=== PATIENT | male | born 1960 | race Caucasian/White ===

== ENCOUNTER 2022-03-14 14:11 | Emergency (ER) | payer MEDICARE, OTHER ==
[~2022-03-14] VITALS: Ht 182 cm; Wt 67.0 kg
--- NOTE | 2022-03-14 15:21 | ED Lower Extremity ---
General Chief Complaint: Lower Extremity Stated Complaint: LEFT LEG SWELLING Source: patient Exam Limitations: no limitations History of Present Illness Date Seen by Provider: Mar 14, 2022 Time Seen by Provider: 15:03 Initial Comments Here with report of left leg swelling and color changes after having surgery for sciatica a few weeks ago. Notes when his leg is down that it turns quite purple and swells but gets better when he puts his leg up. He did not have this problem prior to the surgery. Was seen at [address] today and sent here due to concerns for vascular compromise due to the color changes. On arrival, doing better as his legs have been up. He is currently on aspirin 81 mg daily but not on other blood thinner. Onset: last week Severity: moderate Pain/Injury Location: left leg Method of Injury: unknown Modifying Factors: Improves With Other (Dependent position) Allergies and Home Medications Allergies Coded Allergies: No Known Drug Allergies (Unverified , 03/14/22) Patient Home Medication List Home Medication List Reviewed: Yes Review of Systems Constitutional: see HPI; No chills, No fever Respiratory: no symptoms reported Cardiovascular: edema; No palpitations Musculoskeletal: muscle pain; No muscle weakness Skin: change in color; No lesions Past Sdnukvz-Oxfuic-Koroug Hx Patient Social History Tobacco Use?: No Smoking Status: Former Smoker Substance use?: No Alcohol Use?: No Past Medical History Surgeries: Yes Orthopedic Cardiac: Yes Hypertension Family Medical History Reviewed and Corrections made No Pertinent Family Hx Physical Exam Vital Signs Vital Signs - First Documented 03/14/22 14:57 Temp 36.4 Pulse 60 Resp 18 B/P (MAP) 128/99 (109) Pulse Ox 97 Capillary Refill : Height, Weight, BMI Height: '" Weight: lbs. oz. kg; BMI Method: General Appearance: WD/WN, no apparent distress Cardiovascular: regular rate, rhythm, no murmur Respiratory: lungs clear, normal breath sounds Legs: left leg other (Mild swelling of the left lower extremity versus right. Currently color is similar between both feet and lower extremities. Pulses dopplerable dorsalis pedis bilateral and equal.) Neurologic/Psychiatric: alert, oriented x 3 Skin: normal color, warm/dry Progress/Results/Core Measures Results/Orders Lab Results Laboratory Tests Test 03/14/22 15:37 Range/Units White Blood Count 5.5 4.3-11.0 10^3/uL Red Blood Count 3.83 L 4.30-5.52 10^6/uL Hemoglobin 13.6 13.3-17.7 g/dL Hematocrit 39 L 40-54 % Mean Corpuscular Volume 102 H 80-99 fL Mean Corpuscular Hemoglobin 36 H 25-34 pg Mean Corpuscular Hemoglobin Concent 35 32-36 g/dL Red Cell Distribution Width 14.0 10.0-14.5 % Platelet Count 276 130-400 10^3/uL Mean Platelet Volume 10.1 9.0-12.2 fL Immature Granulocyte % (Auto) 0 % Neutrophils (%) (Auto) 54 42-75 % Lymphocytes (%) (Auto) 38 12-44 % Monocytes (%) (Auto) 7 0-12 % Eosinophils (%) (Auto) 1 0-10 % Basophils (%) (Auto) 1 0-10 % Neutrophils # (Auto) 3.0 1.8-7.8 10^3/uL Lymphocytes # (Auto) 2.1 1.0-4.0 10^3/uL Monocytes # (Auto) 0.4 0.0-1.0 10^3/uL Eosinophils # (Auto) 0.1 0.0-0.3 10^3/uL Basophils # (Auto) 0.0 0.0-0.1 10^3/uL Immature Granulocyte # (Auto) 0.0 0.0-0.1 10^3/uL Sodium Level 139 135-145 MMOL/L Potassium Level 3.9 3.6-5.0 MMOL/L Chloride Level 103 98-107 MMOL/L Carbon Dioxide Level 27 21-32 MMOL/L Anion Gap 9 5-14 MMOL/L Blood Urea Nitrogen 11 7-18 MG/DL Creatinine 0.75 0.60-1.30 MG/DL Estimat Glomerular Filtration Rate 101 BUN/Creatinine Ratio 15 Glucose Level 101 70-105 MG/DL Calcium Level 9.4 8.5-10.1 MG/DL Corrected Calcium 9.0 8.5-10.1 MG/DL Total Bilirubin 0.7 0.1-1.0 MG/DL Aspartate Amino Transf (AST/SGOT) 16 5-34 U/L Alanine Aminotransferase (ALT/SGPT) 16 0-55 U/L Alkaline Phosphatase 48 40-136 U/L Total Protein 7.2 6.4-8.2 GM/DL Albumin 4.5 3.2-4.5 GM/DL My Orders Orders - DANN VARELA MD Us Venous Lower Ext Lt (03/14/22 15:09) Cbc With Automated Diff (03/14/22 15:09) Comprehensive Metabolic Panel (03/14/22 15:09) Vital Signs/I&O 03/14/22 14:57 Temp 36.4 Pulse 60 Resp 18 B/P (MAP) 128/99 (109) Pulse Ox 97 Progress Progress Note : Progress Note Seen and evaluated. We will check labs and ultrasound left lower extremity rule out DVT given his recent surgery and current symptoms. We were able to Doppler pulses bilateral dorsalis pedis and those were equal. His limb is not cold or blue. Monitor patient. 1622: Ultrasound is negative for DVT. I do believe th is is likely postop pain and complication associated with healing but not venous occlusion. This was discussed with the patient. Discharged home with return precautions. Patient verbalized understanding of instructions and agreement with plan. Diagnostic Imaging Diagonstic Imaging: Ultrasound Plain Films/CT/US/NM/MRI: leg Comments [facility], [place] NAME: TITUS SHEEHAN [facility] REC#: [id number] PT STATUS: REG ER : 1960 PHYSICIAN: DANN VARELA MD ADMIT DATE: 03/14/22/ER Draft Date of Exam:03/14/22 US VENOUS LOWER EXT LT Procedure: US left lower extremity venous. Technique: Multiple real-time grayscale images were obtained over the left lower extremity in various projections. Additional duplex Doppler and color Doppler images were also obtained. Date: March 14, 2022. Indication: 61-year-old male, left lower extremity swelling and discoloration. Comparison: None. Findings: The left common femoral vein, left superficial femoral vein, and left popliteal vein are all compressible with normal blood flow and response to augmentation. The visualized portions of the left greater saphenous vein and deep femoral vein are patent. The left posterior tibial and peroneal veins are patent. Impression: 1. Negative for left lower extremity deep venous thrombosis. Dictated on workstation # [id number] Dict: 03/14/22 1543 Trans: 03/14/22 1547 [facility] [id number] Interpreted by: PETE DRUMMOND MD Electronically signed by: Departure Impression Primary Impression: Postoperative pain Additional Impression: Left leg swelling Disposition: 01 HOME, SELF-CARE Condition: Stable Departure-Patient Inst. Decision time for Depature: 16:23 Referrals: NO,LOCAL PHYSICIAN (PCP) Primary Care Physician KEDAR CURTIS (Family) Primary Care Physician Patient Instructions: Postoperative Pain (DC) Add. Discharge Instructions: All discharge instructions reviewed with patient and/or family. Voiced understanding. Continue instructions as given to you by your orthopedist. Follow-up with them as scheduled. You may elevate your leg to reduce swelling. Move your leg as you are able but following instructions from your orthopedist. Return for worse pain, swelling, weakness, breathing problems or other concerns as needed. DANN VARELA MD Mar 14, 2022 15:21
--- NOTE | 2022-03-14 15:47 | Diagnostic Imaging Report ---
Procedure: US left lower extremity venous. Technique: Multiple real-time grayscale images were obtained over the left lower extremity in various projections. Additional duplex Doppler and color Doppler images were also obtained. Date: March 14, 2022. Indication: 61-year-old male, left lower extremity swelling and discoloration. Comparison: None. Findings: The left common femoral vein, left superficial femoral vein, and left popliteal vein are all compressible with normal blood flow and response to augmentation. The visualized portions of the left greater saphenous vein and deep femoral vein are patent. The left posterior tibial and peroneal veins are patent. Impression: 1. Negative for left lower extremity deep venous thrombosis. Dictated by: Dictated on workstation # [id number]
[2022-03-14 15:51] LABS: ALBUMIN 4.5 GM/DL (3.2-4.5)
[2022-03-14 15:52] LABS: POTASSIUM 3.9 MMOL/L (3.6-5.0)
[2022-03-14 15:53] LABS: CALCIUM 9.4 MG/DL (8.5-10.1)
[2022-03-14 15:54] LABS: TOTAL PROTEIN 7.2 GM/DL (6.4-8.2)
[2022-03-14 15:56] LABS: BILIRUBIN,TOTAL 0.7 MG/DL (0.1-1.0)
[2022-03-14 15:58] LABS: CREATININE SERUM 0.75 MG/DL (0.60-1.30)
[2022-03-14 16:00] LABS: BASOPHILS % (AUTO) 1 % (0-10); EOSINOPHILS # (AUTO) 0.1 10^3/uL (0.0-0.3); EOSINOPHILS % (AUTO) 1 % (0-10); HEMATOCRIT 39 % (40-54); HEMOGLOBIN 13.6 g/dL (13.3-17.7); LYMPHOCYTES # (AUTO) 2.1 10^3/uL (1.0-4.0); LYMPHOCYTES % (AUTO) 38 % (12-44); MEAN CORPUSCULAR HEMOGLOBIN 36 pg (25-34); MEAN CORPUSCULAR HGB CONC 35 g/dL (32-36); MEAN CORPUSCULAR VOLUME 102 fL (80-99); MEAN PLATELET VOLUME 10.1 fL (9.0-12.2); MONOCYTES # (AUTO) 0.4 10^3/uL (0.0-1.0); MONOCYTES % (AUTO) 7 % (0-12); NEUTROPHILS % (AUTO) 54 % (42-75); PLATELET COUNT 276 10^3/uL (130-400); WHITE BLOOD COUNT 5.5 10^3/uL (4.3-11.0)
[2022-03-14 16:40] VITALS: BP 127/91
== END 2022-03-14 16:41 | disposition home or self-care (01) ==
LOC: ER 14:14
DX: M79.89 Other specified soft tissue disorders (principal); G89.18 Other acute postprocedural pain; Z87.891 Personal history of nicotine dependence; Z98.890 Other specified postprocedural states
CPT/HCPCS: 36415; 80053; 85025